=== PATIENT | male | born 1950 | race Caucasian/White ===

== ENCOUNTER 2018-03-07 01:27 | Emergency (ER) | payer OTHER ==
[2018-03-07 02:30] LABS: BASO # 0.1 10^3/uL (0.0-0.2); BASO % 0.5 % (0.0-1.0); EOS # 0.1 10^3/uL (0.0-0.50); EOS % 1.2 % (0.0-3.0); HEMATOCRIT 40.7 % (42.0-52.0); IMMATURE GRANULOCYTE % 1.4 % (0-3.0); LYMPH # 1.4 10^3/uL (1.5-4.5); LYMPH % 12.1 % (24.0-44.0); MEAN CORPUSCULAR HEMOGLOBIN 31.2 pg (27.0-33.0); MEAN CORPUSCULAR HGB CONC 34.4 g/dl (32.0-36.5); MEAN CORPUSCULAR VOLUME 90.6 fl (80.0-96.0); MONO # 1.5 10^3/uL (0.0-0.8); MONO % 12.7 % (0.0-5.0); NEUTROPHILS # 8.3 10^3/uL (1.8-7.7); NEUTROPHILS % 72.1 % (36.0-66.0); PLATELET COUNT, AUTOMATED 200 10^3/uL (150-450); RED BLOOD COUNT 4.49 10^6/uL (4.30-6.10); RED CELL DISTRIBUTION WIDTH 13.7 % (11.5-14.5); WHITE BLOOD COUNT 11.5 10^3/uL (4.0-10.0)
[2018-03-07 02:54] LABS: LACTIC ACID SEPSIS PROTOCOL 1.1 MMOL/L (0.4-2.0)
[2018-03-07 02:55] LABS: ALBUMIN 3.6 GM/DL (3.2-5.2); ALBUMIN/GLOBULIN RATIO 1.13 (1.00-1.93); ALKALINE PHOSPHATASE 76 U/L (45-117); ALT/SGPT 35 U/L (12-78); ANION GAP 7 MEQ/L (8-16); AST/SGOT 22 U/L (7-37); BILIRUBIN,DIRECT 0.1 MG/DL (0.0-0.2); BILIRUBIN,TOTAL 0.5 MG/DL (0.2-1.0); BLOOD UREA NITROGEN 18 MG/DL (7-18); CARBON DIOXIDE LEVEL 25 MEQ/L (21-32); CHLORIDE LEVEL 101 MEQ/L (98-107); CREATININE FOR GFR 0.73 MG/DL (0.70-1.30); GLOMERULAR FILTRATION RATE > 60.0 (>49); GLUCOSE, FASTING 160 MG/DL (70-100); POTASSIUM SERUM 4.2 MEQ/L (3.5-5.1); SODIUM LEVEL 133 MEQ/L (136-145); TOTAL PROTEIN 6.8 GM/DL (6.4-8.2)
== END 2018-03-07 03:27 | disposition home or self-care (01) ==
LOC: M ED 01:27
DX: R50.9 Fever, unspecified (principal); C49.9 Malignant neoplasm of connective and soft tissue, unspecified; Z92.21 Personal history of antineoplastic chemotherapy
CPT/HCPCS: 80076

== ENCOUNTER 2018-03-13 20:39 | Emergency (ER) | payer OTHER ==
[2018-03-13] MEDS: NS 1,000 ML IV (21:23)
[2018-03-13] MEDS: METOCLOPRAMIDE INJ 10MG/2ML VIAL (J2765) IV (21:23)
[2018-03-13] MEDS: diphenhydrAMINE INJ 50MG/ML VIAL (J1200) IV (21:23)
[2018-03-13 21:39] LABS: BASO # 0.1 10^3/uL (0.0-0.2); BASO % 0.2 % (0.0-1.0); EOS # 0.1 10^3/uL (0.0-0.50); EOS % 0.4 % (0.0-3.0); HEMATOCRIT 42.8 % (42.0-52.0); IMMATURE GRANULOCYTE % 2.4 % (0-3.0); LYMPH # 1.4 10^3/uL (1.5-4.5); LYMPH % 4.9 % (24.0-44.0); MEAN CORPUSCULAR VOLUME 88.4 fl (80.0-96.0); MONO # 0.9 10^3/uL (0.0-0.8); NEUTROPHILS % 89.1 % (36.0-66.0); PLATELET COUNT, AUTOMATED 409 10^3/uL (150-450); RED BLOOD COUNT 4.84 10^6/uL (4.30-6.10); RED CELL DISTRIBUTION WIDTH 13.3 % (11.5-14.5); WHITE BLOOD COUNT 29.6 10^3/uL (4.0-10.0)
[2018-03-13 21:57] LABS: INR 0.98; NEUTROPHILS # 26.3 10^3/uL (1.8-7.7); POSITIVE DIFF POS FLAG; PROTHROMBIN TIME 13.1 SECONDS (12.4-14.5)
[2018-03-13 21:57] LABS: LACTIC ACID SEPSIS PROTOCOL 1.6 MMOL/L (0.4-2.0)
[2018-03-13 21:58] LABS: ALBUMIN 3.5 GM/DL (3.2-5.2); ALBUMIN/GLOBULIN RATIO 1.17 (1.00-1.93); ALKALINE PHOSPHATASE 84 U/L (45-117); ALT/SGPT 65 U/L (12-78); ANION GAP 11 MEQ/L (8-16); AST/SGOT 20 U/L (7-37); BILIRUBIN,DIRECT 0.2 MG/DL (0.0-0.2); BILIRUBIN,TOTAL 0.5 MG/DL (0.2-1.0); BLOOD UREA NITROGEN 21 MG/DL (7-18); CALCIUM LEVEL 8.3 MG/DL (8.8-10.2); CARBON DIOXIDE LEVEL 22 MEQ/L (21-32); CHLORIDE LEVEL 96 MEQ/L (98-107); CPK CREATINE PHOSPHOKINASE 23 U/L (39-308); CREATININE FOR GFR 0.64 MG/DL (0.70-1.30); GLOMERULAR FILTRATION RATE > 60.0 (>49); GLUCOSE, FASTING 149 MG/DL (70-100); LIPASE 116 U/L (73-393); PARTIAL THROMBOPLASTIN TIME 30.4 SECONDS (26.8-37.9); POTASSIUM SERUM 4.1 MEQ/L (3.5-5.1); SODIUM LEVEL 129 MEQ/L (136-145); TOTAL PROTEIN 6.5 GM/DL (6.4-8.2)
== END 2018-03-13 23:44 | disposition home or self-care (01) ==
LOC: M ED 20:39
DX: E87.1 Hypo-osmolality and hyponatremia (principal); T45.1X5A Adverse effect of antineoplastic and immunosuppressive drugs, initial encounter; C49.9 Malignant neoplasm of connective and soft tissue, unspecified; E86.0 Dehydration; I10 Essential (primary) hypertension; K21.9 Gastro-esophageal reflux disease without esophagitis; E11.9 Type 2 diabetes mellitus without complications; Z79.4 Long term (current) use of insulin; Z79.899 Other long term (current) drug therapy
CPT/HCPCS: J1200

== ENCOUNTER 2018-04-01 14:22 | Emergency (ER) | payer OTHER ==
[2018-04-01 17:03] LABS: BASO # 0.1 10^3/uL (0.0-0.2); BASO % 0.8 % (0.0-1.0); EOS # 0.1 10^3/uL (0.0-0.50); EOS % 1.6 % (0.0-3.0); HEMATOCRIT 39.9 % (42.0-52.0); HEMOGLOBIN 13.6 g/dl (13.5-17.5); LYMPH # 1.6 10^3/uL (1.5-4.5); LYMPH % 20.4 % (24.0-44.0); MEAN CORPUSCULAR HEMOGLOBIN 31.7 pg (27.0-33.0); MEAN CORPUSCULAR HGB CONC 34.1 g/dl (32.0-36.5); MONO # 0.8 10^3/uL (0.0-0.8); MONO % 9.6 % (0.0-5.0); NEUTROPHILS # 5.2 10^3/uL (1.8-7.7); NEUTROPHILS % 64.6 % (36.0-66.0); PLATELET COUNT, AUTOMATED 185 10^3/uL (150-450); RED BLOOD COUNT 4.29 10^6/uL (4.30-6.10); RED CELL DISTRIBUTION WIDTH 14.8 % (11.5-14.5)
[2018-04-01 17:08] LABS: INR 0.93; PROTHROMBIN TIME 12.5 SECONDS (12.4-14.5)
[2018-04-01 17:23] LABS: ANION GAP 8 MEQ/L (8-16); AST/SGOT 22 U/L (7-37); BLOOD UREA NITROGEN 18 MG/DL (7-18); CALCIUM LEVEL 8.5 MG/DL (8.8-10.2); CARBON DIOXIDE LEVEL 24 MEQ/L (21-32); CHLORIDE LEVEL 103 MEQ/L (98-107); CREATININE FOR GFR 0.74 MG/DL (0.70-1.30); GLOMERULAR FILTRATION RATE > 60.0 (>49); GLUCOSE, FASTING 275 MG/DL (70-100); SODIUM LEVEL 135 MEQ/L (136-145)
[2018-04-01 17:24] LABS: ALBUMIN 3.6 GM/DL (3.2-5.2); ALBUMIN/GLOBULIN RATIO 1.24 (1.00-1.93); ALKALINE PHOSPHATASE 96 U/L (45-117); ALT/SGPT 41 U/L (12-78); BILIRUBIN,DIRECT < 0.1 MG/DL (0.0-0.2); BILIRUBIN,TOTAL 0.3 MG/DL (0.2-1.0); C REACTIVE PROTEIN QUANTITATIV 0.45 MG/DL (0.00-0.30); TOTAL PROTEIN 6.5 GM/DL (6.4-8.2)
[2018-04-01 17:31] LABS: LACTIC ACID SEPSIS PROTOCOL 2.1 MMOL/L (0.4-2.0)
[2018-04-01] MEDS: NS 1,000 ML IV (17:40)
[2018-04-01 18:00] LABS: ERYTHROCYTE SEDIMENTATION RATE 12 mm/hr (0-20)
[2018-04-01] MEDS: PERCOCET 5MG/325MG TAB PO (18:28)
== END 2018-04-01 18:38 | disposition home or self-care (01) ==
LOC: M ED 14:22
DX: I82.432 Acute embolism and thrombosis of left popliteal vein (principal); E11.9 Type 2 diabetes mellitus without complications; I10 Essential (primary) hypertension; K21.9 Gastro-esophageal reflux disease without esophagitis; Z79.01 Long term (current) use of anticoagulants; Z79.4 Long term (current) use of insulin; Z79.899 Other long term (current) drug therapy; Z86.79 Personal history of other diseases of the circulatory system; Z86.69 Personal history of other diseases of the nervous system and sense organs; Z86.718 Personal history of other venous thrombosis and embolism; Z98.890 Other specified postprocedural states
CPT/HCPCS: 93971

== ENCOUNTER → 2018-06-09 | Outpatient (CLI) | payer OTHER ==
[~2018-06-09] MED LIST: ISOVUE-300 61% 50ML VIAL (Q9967) As Ordered; LIDOCAINE 2% MDV 20 ML VIAL As Ordered
== END | disposition home or self-care (01) ==
LOC: M IRPRO 11:21
DX: I82.402 Acute embolism and thrombosis of unspecified deep veins of left lower extremity (principal); C76.52 Malignant neoplasm of left lower limb
CPT/HCPCS: 37191

== ENCOUNTER 2018-06-16 16:30 | Inpatient (IN) | payer OTHER ==
[~2018-06-16 16:30] MED LIST changes: +BISACODYL 10 MG SUPP PR; +BISACODYL 5 MG TAB PO; +DEXTROSE 50% 50 ML SYRINGE IV; +FLEET ENEMA PR; +GLUCAGON FOR INJ 1 MG VIAL (J1610) SC; +GLUCOSE 4 GM CHEW TABLET PO; -ISOVUE-300 61% 50ML VIAL (Q9967) As Ordered; -LIDOCAINE 2% MDV 20 ML VIAL As Ordered; +MOM 30ML SUSPENSION UDC PO; +ONDANSETRON 4 MG TAB (S0181) PO; +ONDANSETRON 4MG/2ML VIAL (J2405) IM
[2018-06-16] MEDS: traMADol 50 MG TAB PO ×2 (17:25→23:00)
[2018-06-16] MEDS ORDERED: glyBURIDE 2.5 MG TAB PO (17:30)
[2018-06-16] MEDS: HumaLOG INSULIN (NovoLOG) PER UNIT SC ×2 (17:30→21:00)
[2018-06-16] MEDS: glyBURIDE 2.5 MG TAB PO (17:30)
[2018-06-16 17:31] LABS: BEDSIDE GLUCOSE 217 MG/DL (80-115)
[2018-06-16] MEDS: ACETAMINOPHEN 325 MG TAB PO (19:07)
[2018-06-16] MEDS: IBUPROFEN 600 MG TAB PO (20:16)
[2018-06-16 21:00] LABS: BEDSIDE GLUCOSE 217 MG/DL (80-115)
[2018-06-16] MEDS: SENNA 8.6 MG TAB (SENOKOT) PO (21:00)
[2018-06-16] MEDS: GABAPENTIN 300 MG CAP PO (21:06)
[2018-06-16] MEDS: METOPROLOL SUCC *XL* 25MG TAB (TopROL *XL*) PO (21:07)
[2018-06-16] MEDS: OMEPRAZOLE 20 MG CAP PO (21:07)
[2018-06-17] MEDS: UNRESOLVED PATIENT OWN MED ORDER XX (00:01)
[2018-06-17] MEDS: traMADol 50 MG TAB PO ×3 (05:37→18:46)
[2018-06-17 06:58] LABS: BASO # 0.1 10^3/uL (0.0-0.2); BASO % 0.7 % (0.0-1.0); EOS # 0.3 10^3/uL (0.0-0.50); EOS % 3.7 % (0.0-3.0); HEMOGLOBIN 12.8 g/dl (13.5-17.5); IMMATURE GRANULOCYTE % 1.6 % (0-3.0); LYMPH # 1.3 10^3/uL (1.5-4.5); LYMPH % 18.5 % (24.0-44.0); MEAN CORPUSCULAR HEMOGLOBIN 30.9 pg (27.0-33.0); MEAN CORPUSCULAR HGB CONC 32.8 g/dl (32.0-36.5); MEAN CORPUSCULAR VOLUME 94.2 fl (80.0-96.0); MONO # 0.8 10^3/uL (0.0-0.8); NEUTROPHILS # 4.4 10^3/uL (1.8-7.7); NEUTROPHILS % 64.5 % (36.0-66.0); PLATELET COUNT, AUTOMATED 236 10^3/uL (150-450); RED BLOOD COUNT 4.14 10^6/uL (4.30-6.10); RED CELL DISTRIBUTION WIDTH 13.2 % (11.5-14.5); WHITE BLOOD COUNT 6.8 10^3/uL (4.0-10.0)
[2018-06-17] MEDS ORDERED: OMEPRAZOLE 20 MG CAP PO (07:00)
[2018-06-17 07:24] LABS: ALBUMIN 2.8 GM/DL (3.2-5.2); ALBUMIN/GLOBULIN RATIO 0.72 (1.00-1.93); ALKALINE PHOSPHATASE 57 U/L (45-117); ALT/SGPT 34 U/L (12-78); ANION GAP 11 MEQ/L (8-16); AST/SGOT 39 U/L (7-37); BILIRUBIN,TOTAL 0.3 MG/DL (0.2-1.0); BLOOD UREA NITROGEN 14 MG/DL (7-18); CALCIUM LEVEL 8.3 MG/DL (8.8-10.2); CARBON DIOXIDE LEVEL 23 MEQ/L (21-32); CHLORIDE LEVEL 105 MEQ/L (98-107); CREATININE FOR GFR 0.45 MG/DL (0.70-1.30); GLOMERULAR FILTRATION RATE > 60.0 (>49); GLUCOSE, FASTING 156 MG/DL (70-100); POTASSIUM SERUM 3.9 MEQ/L (3.5-5.1); SODIUM LEVEL 139 MEQ/L (136-145); TOTAL PROTEIN 6.7 GM/DL (6.4-8.2)
[2018-06-17] MEDS: GABAPENTIN 300 MG CAP PO ×3 (08:20→20:48)
[2018-06-17] MEDS: LISINOPRIL 20 MG TAB PO (08:20)
[2018-06-17] MEDS: OMEGA-3 1050MG CAPSULE PO (08:20)
[2018-06-17] MEDS: OMEPRAZOLE 20 MG CAP PO ×2 (08:20→20:51)
[2018-06-17] MEDS: DOCUSATE SODIUM 100 MG CAP PO (08:20)
[2018-06-17] MEDS: ENOXAPARIN 40 MG/0.4 ML SYRINGE (J1650) SQ (08:20)
[2018-06-17] MEDS: METOPROLOL SUCC *XL* 25MG TAB (TopROL *XL*) PO ×2 (08:20→20:49)
[2018-06-17] MEDS: glyBURIDE 2.5 MG TAB PO ×2 (08:21→17:16)
[2018-06-17] MEDS: OYSTER SHELL CALCIUM 500 MG TAB PO (08:21)
[2018-06-17] MEDS: hydroCHLOROthiazide 25 MG TAB PO (08:21)
[2018-06-17] MEDS: HumaLOG INSULIN (NovoLOG) PER UNIT SC ×4 (08:21→21:00)
[2018-06-17] MEDS: MIRALAX *UNIT DOSE* 17GM PACKET PO (08:22)
[2018-06-17] MEDS ORDERED: TRADJENTA 5 MG PO (09:00)
[2018-06-17] MEDS ORDERED: INVOKANA 300 MG PO (09:00)
[2018-06-17 11:29] LABS: BEDSIDE GLUCOSE 279 MG/DL (80-115)
[2018-06-17 16:30] LABS: BEDSIDE GLUCOSE 164 MG/DL (80-115)
[2018-06-17 19:20] LABS: BEDSIDE GLUCOSE 228 MG/DL (80-115)
[2018-06-17] MEDS: IBUPROFEN 600 MG TAB PO (20:50)
[2018-06-17] MEDS: SENNA 8.6 MG TAB (SENOKOT) PO (20:51)
[2018-06-18 05:21] LABS: BEDSIDE GLUCOSE 207 MG/DL (80-115)
[2018-06-18 06:43] LABS: HEMATOCRIT 40.2 % (42.0-52.0); HEMOGLOBIN 13.4 g/dl (13.5-17.5); MEAN CORPUSCULAR HEMOGLOBIN 31.1 pg (27.0-33.0); MEAN CORPUSCULAR HGB CONC 33.3 g/dl (32.0-36.5); MEAN CORPUSCULAR VOLUME 93.3 fl (80.0-96.0); PLATELET COUNT, AUTOMATED 252 10^3/uL (150-450); RED BLOOD COUNT 4.31 10^6/uL (4.30-6.10); RED CELL DISTRIBUTION WIDTH 13.2 % (11.5-14.5); WHITE BLOOD COUNT 6.5 10^3/uL (4.0-10.0)
[2018-06-18 07:17] LABS: FERRITIN 523 NG/ML (26-388); IRON (FE) 41 UG/DL (65-175); PERCENT SATURATION 17.7 % (19.7-50.0); TOTAL IRON BINDING CAPACITY 231 UG/DL (250-450)
[2018-06-18] MEDS: HumaLOG INSULIN (NovoLOG) PER UNIT SC ×4 (08:12→21:00)
[2018-06-18] MEDS: IBUPROFEN 600 MG TAB PO ×2 (08:15→16:25)
[2018-06-18] MEDS: OYSTER SHELL CALCIUM 500 MG TAB PO (08:16)
[2018-06-18] MEDS: hydroCHLOROthiazide 25 MG TAB PO (08:16)
[2018-06-18] MEDS: OMEGA-3 1050MG CAPSULE PO (08:16)
[2018-06-18] MEDS: DOCUSATE SODIUM 100 MG CAP PO (08:16)
[2018-06-18] MEDS: GABAPENTIN 300 MG CAP PO ×3 (08:16→21:22)
[2018-06-18] MEDS: glyBURIDE 2.5 MG TAB PO ×2 (08:16→18:03)
[2018-06-18] MEDS: OMEPRAZOLE 20 MG CAP PO ×2 (08:17→21:23)
[2018-06-18] MEDS: LISINOPRIL 20 MG TAB PO (08:17)
[2018-06-18] MEDS: ENOXAPARIN 40 MG/0.4 ML SYRINGE (J1650) SQ (08:17)
[2018-06-18] MEDS: METOPROLOL SUCC *XL* 25MG TAB (TopROL *XL*) PO ×2 (08:17→21:23)
[2018-06-18] MEDS: MIRALAX *UNIT DOSE* 17GM PACKET PO (08:18)
[2018-06-18 11:47] LABS: BEDSIDE GLUCOSE 215 MG/DL (80-115)
[2018-06-18 17:06] LABS: BEDSIDE GLUCOSE 166 MG/DL (80-115)
[2018-06-18 20:31] LABS: BEDSIDE GLUCOSE 176 MG/DL (80-115)
[2018-06-18] MEDS: SENNA 8.6 MG TAB (SENOKOT) PO (21:23)
[2018-06-19] MEDS: IBUPROFEN 600 MG TAB PO ×2 (06:15→14:38)
[2018-06-19 06:23] LABS: BEDSIDE GLUCOSE 206 MG/DL (80-115)
[2018-06-19 06:54] LABS: HEMATOCRIT 38.8 % (42.0-52.0); HEMOGLOBIN 12.8 g/dl (13.5-17.5); MEAN CORPUSCULAR HEMOGLOBIN 30.4 pg (27.0-33.0); MEAN CORPUSCULAR VOLUME 92.2 fl (80.0-96.0); PLATELET COUNT, AUTOMATED 284 10^3/uL (150-450); RED BLOOD COUNT 4.21 10^6/uL (4.30-6.10); RED CELL DISTRIBUTION WIDTH 13.1 % (11.5-14.5); WHITE BLOOD COUNT 5.3 10^3/uL (4.0-10.0)
[2018-06-19] MEDS: ENOXAPARIN 40 MG/0.4 ML SYRINGE (J1650) SQ (07:56)
[2018-06-19] MEDS: HumaLOG INSULIN (NovoLOG) PER UNIT SC ×4 (07:56→21:00)
[2018-06-19] MEDS: OMEPRAZOLE 20 MG CAP PO ×2 (07:57→21:02)
[2018-06-19] MEDS: OYSTER SHELL CALCIUM 500 MG TAB PO (07:57)
[2018-06-19] MEDS: hydroCHLOROthiazide 25 MG TAB PO (07:57)
[2018-06-19] MEDS: OMEGA-3 1050MG CAPSULE PO (07:57)
[2018-06-19] MEDS: GABAPENTIN 300 MG CAP PO ×3 (07:57→21:00)
[2018-06-19] MEDS: LISINOPRIL 20 MG TAB PO (07:57)
[2018-06-19] MEDS: METOPROLOL SUCC *XL* 25MG TAB (TopROL *XL*) PO ×2 (07:58→21:02)
[2018-06-19] MEDS: DOCUSATE SODIUM 100 MG CAP PO (07:58)
[2018-06-19] MEDS: MIRALAX *UNIT DOSE* 17GM PACKET PO (07:58)
[2018-06-19] MEDS: glyBURIDE 2.5 MG TAB PO ×2 (07:58→17:50)
[2018-06-19 11:54] LABS: BEDSIDE GLUCOSE 237 MG/DL (80-115)
[2018-06-19] MEDS: ACETAMINOPHEN 325 MG TAB PO (12:31)
[2018-06-19 17:09] LABS: BEDSIDE GLUCOSE 153 MG/DL (80-115)
[2018-06-19 20:14] LABS: BEDSIDE GLUCOSE 187 MG/DL (80-115)
[2018-06-19] MEDS: SENNA 8.6 MG TAB (SENOKOT) PO (20:46)
[2018-06-20 06:02] LABS: BEDSIDE GLUCOSE 198 MG/DL (80-115)
[2018-06-20 06:29] LABS: INR 0.97
[2018-06-20 06:49] LABS: FOLATE 12.4 NG/ML (>5.4); VITAMIN B12 LEVEL 436 PG/ML (247-911)
[2018-06-20] MEDS: HumaLOG INSULIN (NovoLOG) PER UNIT SC ×4 (08:00→21:00)
[2018-06-20] MEDS: glyBURIDE 2.5 MG TAB PO ×2 (08:00→17:43)
[2018-06-20] MEDS: OMEPRAZOLE 20 MG CAP PO ×2 (08:01→21:06)
[2018-06-20] MEDS: ENOXAPARIN 40 MG/0.4 ML SYRINGE (J1650) SQ (08:01)
[2018-06-20] MEDS: hydroCHLOROthiazide 25 MG TAB PO (08:01)
[2018-06-20] MEDS: DOCUSATE SODIUM 100 MG CAP PO (08:01)
[2018-06-20] MEDS: MIRALAX *UNIT DOSE* 17GM PACKET PO (08:01)
[2018-06-20] MEDS: OMEGA-3 1050MG CAPSULE PO (08:01)
[2018-06-20] MEDS: GABAPENTIN 300 MG CAP PO ×3 (08:01→21:07)
[2018-06-20] MEDS: OYSTER SHELL CALCIUM 500 MG TAB PO (08:01)
[2018-06-20] MEDS: ACETAMINOPHEN TAB 650MG DOSE (2X325MG) PO ×2 (08:02→18:05)
[2018-06-20] MEDS: METOPROLOL SUCC *XL* 25MG TAB (TopROL *XL*) PO ×2 (08:04→21:06)
[2018-06-20] MEDS: LISINOPRIL 20 MG TAB PO (08:04)
[2018-06-20 11:53] LABS: BEDSIDE GLUCOSE 228 MG/DL (80-115)
[2018-06-20] MEDS ORDERED: metFORMIN (GLUCOPHAGE) 500 MG TAB PO (12:00)
[2018-06-20 16:34] LABS: BEDSIDE GLUCOSE 165 MG/DL (80-115)
[2018-06-20 20:03] LABS: BEDSIDE GLUCOSE 172 MG/DL (80-115)
[2018-06-20] MEDS: SENNA 8.6 MG TAB (SENOKOT) PO (21:00)
[2018-06-21] MEDS: ACETAMINOPHEN TAB 650MG DOSE (2X325MG) PO (02:00)
[2018-06-21 07:02] LABS: BEDSIDE GLUCOSE 195 MG/DL (80-115)
[2018-06-21] MEDS: MIRALAX *UNIT DOSE* 17GM PACKET PO (08:42)
[2018-06-21] MEDS: glyBURIDE 2.5 MG TAB PO ×2 (08:53→17:28)
[2018-06-21] MEDS: METOPROLOL SUCC *XL* 25MG TAB (TopROL *XL*) PO ×2 (08:54→20:52)
[2018-06-21] MEDS: OMEGA-3 1050MG CAPSULE PO (08:54)
[2018-06-21] MEDS: GABAPENTIN 300 MG CAP PO ×3 (08:54→20:51)
[2018-06-21] MEDS: hydroCHLOROthiazide 25 MG TAB PO (08:55)
[2018-06-21] MEDS: OYSTER SHELL CALCIUM 500 MG TAB PO (08:55)
[2018-06-21] MEDS: OMEPRAZOLE 20 MG CAP PO ×2 (08:55→20:51)
[2018-06-21] MEDS: LISINOPRIL 20 MG TAB PO (08:55)
[2018-06-21] MEDS: ENOXAPARIN 40 MG/0.4 ML SYRINGE (J1650) SQ (08:56)
[2018-06-21] MEDS: DOCUSATE SODIUM 100 MG CAP PO (08:56)
[2018-06-21] MEDS: HumaLOG INSULIN (NovoLOG) PER UNIT SC ×4 (08:56→20:52)
[2018-06-21] MEDS: INVOKANA 300 MG PO (10:38)
[2018-06-21] MEDS ORDERED: DOCUSATE SODIUM 100 MG CAP PO (11:00)
[2018-06-21 11:41] LABS: BEDSIDE GLUCOSE 183 MG/DL (80-115)
[2018-06-21 16:55] LABS: BEDSIDE GLUCOSE 118 MG/DL (80-115)
[2018-06-21 20:11] LABS: BEDSIDE GLUCOSE 149 MG/DL (80-115)
[2018-06-22 06:31] LABS: BEDSIDE GLUCOSE 158 MG/DL (80-115)
[2018-06-22 06:35] LABS: HEMOGLOBIN 13.1 g/dl (13.5-17.5); MEAN CORPUSCULAR HGB CONC 33.6 g/dl (32.0-36.5); MEAN CORPUSCULAR VOLUME 92.4 fl (80.0-96.0); PLATELET COUNT, AUTOMATED 275 10^3/uL (150-450); RED BLOOD COUNT 4.22 10^6/uL (4.30-6.10); RED CELL DISTRIBUTION WIDTH 13.1 % (11.5-14.5); WHITE BLOOD COUNT 6.2 10^3/uL (4.0-10.0)
[2018-06-22] MEDS: ENOXAPARIN 40 MG/0.4 ML SYRINGE (J1650) SQ (08:28)
[2018-06-22] MEDS: INVOKANA 300 MG PO (08:28)
[2018-06-22] MEDS: OYSTER SHELL CALCIUM 500 MG TAB PO (08:29)
[2018-06-22] MEDS: OMEPRAZOLE 20 MG CAP PO ×2 (08:29→20:38)
[2018-06-22] MEDS: OMEGA-3 1050MG CAPSULE PO (08:29)
[2018-06-22] MEDS: LISINOPRIL 20 MG TAB PO (08:29)
[2018-06-22] MEDS: HumaLOG INSULIN (NovoLOG) PER UNIT SC ×4 (08:29→20:09)
[2018-06-22] MEDS: hydroCHLOROthiazide 25 MG TAB PO (08:29)
[2018-06-22] MEDS: GABAPENTIN 300 MG CAP PO ×3 (08:29→20:38)
[2018-06-22] MEDS: glyBURIDE 2.5 MG TAB PO ×2 (08:29→17:16)
[2018-06-22] MEDS: METOPROLOL SUCC *XL* 25MG TAB (TopROL *XL*) PO ×2 (08:30→20:39)
[2018-06-22 11:59] LABS: BEDSIDE GLUCOSE 141 MG/DL (80-115)
[2018-06-22 17:01] LABS: BEDSIDE GLUCOSE 124 MG/DL (80-115)
[2018-06-22 19:33] LABS: BEDSIDE GLUCOSE 239 MG/DL (80-115)
[2018-06-23 06:05] LABS: BEDSIDE GLUCOSE 162 MG/DL (80-115)
[2018-06-23 06:51] LABS: INR 1.02; PROTHROMBIN TIME 13.5 SECONDS (12.1-14.4)
[2018-06-23] MEDS: HumaLOG INSULIN (NovoLOG) PER UNIT SC ×4 (09:20→20:43)
[2018-06-23] MEDS: INVOKANA 300 MG PO (09:21)
[2018-06-23] MEDS: ENOXAPARIN 40 MG/0.4 ML SYRINGE (J1650) SQ (09:21)
[2018-06-23] MEDS: GABAPENTIN 300 MG CAP PO ×3 (09:21→20:43)
[2018-06-23] MEDS: METOPROLOL SUCC *XL* 25MG TAB (TopROL *XL*) PO ×2 (09:21→20:43)
[2018-06-23] MEDS: hydroCHLOROthiazide 25 MG TAB PO (09:23)
[2018-06-23] MEDS: OMEGA-3 1050MG CAPSULE PO (09:23)
[2018-06-23] MEDS: glyBURIDE 2.5 MG TAB PO ×2 (09:23→17:41)
[2018-06-23] MEDS: OMEPRAZOLE 20 MG CAP PO ×2 (09:23→20:43)
[2018-06-23] MEDS: OYSTER SHELL CALCIUM 500 MG TAB PO (09:23)
[2018-06-23] MEDS: LISINOPRIL 20 MG TAB PO (09:23)
[2018-06-23 11:35] LABS: BEDSIDE GLUCOSE 178 MG/DL (80-115)
[2018-06-23 16:52] LABS: BEDSIDE GLUCOSE 101 MG/DL (80-115)
[2018-06-23 20:15] LABS: BEDSIDE GLUCOSE 169 MG/DL (80-115)
[2018-06-24 04:42] LABS: BEDSIDE GLUCOSE 173 MG/DL (80-115)
[2018-06-24] MEDS: INVOKANA 300 MG PO (08:22)
[2018-06-24] MEDS: ENOXAPARIN 40 MG/0.4 ML SYRINGE (J1650) SQ (08:23)
[2018-06-24] MEDS: OYSTER SHELL CALCIUM 500 MG TAB PO (08:23)
[2018-06-24] MEDS: LISINOPRIL 20 MG TAB PO (08:23)
[2018-06-24] MEDS: HumaLOG INSULIN (NovoLOG) PER UNIT SC (08:23)
[2018-06-24] MEDS: OMEGA-3 1050MG CAPSULE PO (08:23)
[2018-06-24] MEDS: OMEPRAZOLE 20 MG CAP PO (08:23)
[2018-06-24] MEDS: GABAPENTIN 300 MG CAP PO (08:24)
[2018-06-24] MEDS: hydroCHLOROthiazide 25 MG TAB PO (08:24)
[2018-06-24] MEDS: METOPROLOL SUCC *XL* 25MG TAB (TopROL *XL*) PO (08:24)
[2018-06-24] MEDS: glyBURIDE 2.5 MG TAB PO (08:24)
== END 2018-06-24 11:45 | disposition home health service (06) | DRG 560 ==
LOC: M PM&R 16:30
PROVIDERS: Physical Medicine & Rehabilitation
DX: Z47.81 Encounter for orthopedic aftercare following surgical amputation (principal); D62 Acute posthemorrhagic anemia; R91.8 Other nonspecific abnormal finding of lung field; E11.9 Type 2 diabetes mellitus without complications; I10 Essential (primary) hypertension; E66.9 Obesity, unspecified; J30.9 Allergic rhinitis, unspecified; K21.9 Gastro-esophageal reflux disease without esophagitis; I44.7 Left bundle-branch block, unspecified; Z68.32 Body mass index [BMI] 32.0-32.9, adult; Z79.899 Other long term (current) drug therapy; Z92.21 Personal history of antineoplastic chemotherapy; Z86.718 Personal history of other venous thrombosis and embolism; Z85.830 Personal history of malignant neoplasm of bone; Z89.612 Acquired absence of left leg above knee; Z79.4 Long term (current) use of insulin

== ENCOUNTER 2018-07-02 21:09 | Emergency (ER) | payer OTHER | END 2018-07-02 23:57 | disposition home or self-care (01) | LOC: M ED 21:09 | DX: N43.3 Hydrocele, unspecified (principal); I86.1 Scrotal varices; S93.401A Sprain of unspecified ligament of right ankle, initial encounter; W18.39XA Other fall on same level, initial encounter; Y92.89 Other specified places as the place of occurrence of the external cause; E11.9 Type 2 diabetes mellitus without complications; I10 Essential (primary) hypertension; K21.9 Gastro-esophageal reflux disease without esophagitis; Z79.899 Other long term (current) drug therapy; Z88.8 Allergy status to other drugs, medicaments and biological substances | CPT/HCPCS: 73610 ==

== ENCOUNTER 2018-07-09 18:36 | Emergency (ER) | payer OTHER | END 2018-07-09 22:26 | disposition home or self-care (01) | LOC: M ED 18:36 | DX: S92.351A Displaced fracture of fifth metatarsal bone, right foot, initial encounter for closed fracture (principal); X50.9XXA Other and unspecified overexertion or strenuous movements or postures, initial encounter; Y92.018 Other place in single-family (private) house as the place of occurrence of the external cause; R60.0 Localized edema; Z79.899 Other long term (current) drug therapy; Z88.8 Allergy status to other drugs, medicaments and biological substances | CPT/HCPCS: 73630 ==